=== PATIENT | female | born 1945 | race Caucasian/White ===

== ENCOUNTER 2016-11-07 08:19 | Emergency (ER) | payer MEDICARE ==
[2016-11-07 08:26] VITALS: BP 142/74
--- NOTE | 2016-11-07 10:29 | UC ---
Complaint Female HPI - HPI Summary HPI Summary: URGENCY FREQUENCY AND PAIN WITH URINATION. NO FEVER. NO ABDOMINAL PAIN. NO BACK PAIN. - History Of Current Complaint Chief Complaint: UCGU Stated Complaint: URINARY ISSUE Time Seen by Provider: 11/07/16 08:42 Hx Obtained From: Patient Onset/Duration: Gradual Onset, Lasting Days, Still Present Timing: Lasting Days Severity Initially: Mild Severity Currently: Moderate Pain Intensity: 4 Pain Scale Used: 0-10 Numeric Character: Dull Aggravating Factor(s): Urination Associated Signs And Symptoms: Negative: Fever, Back Pain, Vaginal Discharge, Nausea, Vomiting(# Of Episodes =) - Risk Factors Ectopic Risk Factor: Negative - Allergies/Home Medications Allergies/Adverse Reactions: Allergies Allergy/AdvReac Type Severity Reaction Status Date / Time No Known Allergies Allergy Verified 10/30/13 20:59 PMH/Surg Hx/FS Hx/Imm Hx Previously Healthy: Yes - Surgical History Surgical History: Yes Surgery Procedure, Year, and Place: CHOLECYSTECTOMY,HYSTERECTOMY, BILAT KNEE REPLACEMENT, laminectomy 1984-[employer] - Family History Known Family History: Positive: None, Renal Disease Family History: no cardio vascular issues in family lineage - Social History Occupation: Retired Lives: With Family Alcohol Use: Rare Alcohol Amount: 1-2 glasses of wine per week Substance Use Type: None Substance Use Comment - Amount & Last Used: [place] Smoking Status (MU): Former Smoker Have You Smoked in the Last Year: No When Did the Patient Quit Smoking/Using Tobacco: 1996 Review of Systems Constitutional: Negative Skin: Negative Eyes: Negative ENT: Negative Respiratory: Negative Cardiovascular: Negative Gastrointestinal: Negative Genitourinary: Dysuria, Frequency, Urgency Motor: Negative Neurovascular: Negative Musculoskeletal: Negative Neurological: Negative Psychological: Negative All Other Systems Reviewed And Are Negative: Yes Physical Exam Triage Information Reviewed: Yes Appearance: Well-Appearing, No Pain Distress, Well-Nourished Vital Signs: Initial Vital Signs Temp 98 F 11/07/16 08:22 Pulse 83 11/07/16 08:22 Resp 16 11/07/16 08:22 BP 142/74 11/07/16 08:22 Pulse Ox 98 11/07/16 08:22 Vital Signs Reviewed: Yes Eye Exam: Normal ENT Exam: Normal ENT: Positive: Normal ENT inspection, TMs normal Dental Exam: Normal Neck exam: Normal Neck: Positive: Supple, Nontender, No Lymphadenopathy Respiratory Exam: Normal Respiratory: Positive: Chest non-tender, Lungs clear, Normal breath sounds, No respiratory distress, No accessory muscle use Cardiovascular Exam: Normal Cardiovascular: Positive: RRR, No Murmur, Pulses Normal, Brisk Capillary Refill Abdominal Exam: Normal Abdomen Description: Positive: Nontender, No Organomegaly, Soft. Negative: CVA Tenderness (R), CVA Tenderness (L) Musculoskeletal Exam: Normal Musculoskeletal: Positive: Strength Intact, ROM Intact Neurological Exam: Normal Psychological Exam: Normal Skin Exam: Normal Complaint Female Dx - Differential Dx/Diagnosis Differential Diagnosis/HQI/PQRI: Urinary Tract Infection Provider Diagnoses: URINARY TRACT INFECTION Discharge - Discharge Plan Condition: Stable Disposition: HOME Prescriptions: Phenazopyridine TAB* [Pyridium 100 mg TAB*] 100 mg PO TID #15 tab Sulfamethox/Trimethoprim DS* [Bactrim DS 800/160 TAB*] 1 tab PO BID #10 tab Patient Education Materials: Urinary Tract Infection in Women (ED) Referrals: Lena Ahmadi MD [Primary Care Provider] -
--- NOTE | 2016-11-09 09:16 | ED ---
Course/Dx - Course Course Of Treatment: Urine cx returned showing E.Coli resistant to bactrim. Rx macrobid 100mg po bid x 7 days sent to pharmacy. Nursing to inform patient. - Diagnoses Provider Diagnoses: UTI (urinary tract infection)
== END 2016-11-07 09:20 | disposition home or self-care (01) ==
LOC: UCEAST 08:19
DX: N39.0 Urinary tract infection, site not specified (principal); Z87.891 Personal history of nicotine dependence
CPT/HCPCS: 81003; 87077; 87086; 87186; 99212; G0463

== ENCOUNTER 2019-07-17 10:20 | Day surgery (SDC) | payer MEDICARE ==
[~2019-07-17 10:20] MED LIST: Acetaminophen TAB* 325 MG PO PRN; Buffered Lidocaine 1% SYRIN* 1 ML/SYRINGE INTRADERM ONE; Cyclopentolate 1% OPTH.SOL* 2 ML BTL ONE; Ketorolac 0.5% OPHTH (NF) 0.5 % 5 ML BTL ONE; Lidocaine 1% MPF ** 5 ML VIAL ONE; Neomycin/Polymy/Dex OPHTH.OIN* 3.5 GM ONE; Phenylephrine OPHTH SOL 2.5%* 2 ML ONE; Tetracaine 0.5% OPTH.SOL 4 ML* 1 DROP BTL ONE; Tropicamide 1% OPTH.SOL* BTL ONE
[2019-07-17] MEDS ORDERED: Midazolam* 1 MG/ML 2 ML VIAL (2 MG) ONE (11:23)
[2019-07-17] MEDS ORDERED: fentaNYL* 50 MCG/ML 2 ML VIAL (100 MCG VIAL) ONE (11:23)
[2019-07-17 12:29] VITALS: BP 137/52
--- NOTE | 2019-07-18 00:08 | OP ---
DATE OF OPERATION: 07/17/19 [facility] DATE OF : 41 SURGEON: Dr. Omid Ward. AUTOMOTIVE DIAGNOSTIC TECHNICIAN: None. ANESTHESIA: Topical with intravenous sedation. PRE-OP DIAGNOSIS: Cataract, left eye. POST-OP DIAGNOSIS: Cataract, left eye. OPERATIVE PROCEDURE: Phacoemulsification and cataract extraction with posterior chamber intraocular lens implant, left eye. COMPLICATIONS: None. BLOOD LOSS: None. DESCRIPTION OF PROCEDURE: The patient was brought to the operating room and received a small amount of intravenous sedation. A drop of Tetracaine was placed in her left eye. She was prepped and draped in the usual sterile fashion for ophthalmic surgery and attention was directed to the left eye where a speculum was placed. A paracentesis was created at the 5 o'clock position and 0.1 cc of 1 percent preservative-free Lidocaine was injected into the anterior chamber followed by DisCoVisc. The eye was digitally stabilized while a 2.75 mm keratome was used to create a triplanar clear corneal incision at the 3 o'clock position. A continuous curvilinear capsulorrhexis was created with a cystotome and Utrata forceps. BSS on a cannula was used to hydrodissect the lens from the capsule. Phacoemulsification was performed in a divide-and- conquer technique to create four fragments which were removed. Residual cortical material was removed with irrigation and aspiration. DisCoVisc was used to inflate the capsular bag and an AU00T0 21.5 diopter lens was folded and inserted into the capsular bag. DisCoVisc was removed using irrigation and aspiration. BSS on a cannula was used to hydrate the corneal stroma and seal the wound. At the end of the case the pupil was round and the lens was centered. The eye was of normal pressure and the wound was water tight. The speculum was removed and topical Maxitrol ointment was placed on the surface of the eye. The eye was closed, patched and shielded and the patient was sent to the recovery room in stable condition with post operative instructions and follow-up appointment given. [id number]/[facility] #: [id number] OPAL
== END 2019-07-17 12:45 | disposition home or self-care (01) ==
LOC: OREAST 10:20
PROVIDERS: ATTEND Ophthalmology
DX: H25.12 Age-related nuclear cataract, left eye (principal); R73.03 Prediabetes; M19.90 Unspecified osteoarthritis, unspecified site; Z96.653 Presence of artificial knee joint, bilateral; E78.5 Hyperlipidemia, unspecified
CPT/HCPCS: A9270-GY; J2250; J3010; V2632

== ENCOUNTER 2019-07-24 07:18 | Day surgery (SDC) | payer MEDICARE ==
[~2019-07-24 07:18] MED LIST changes: -Cyclopentolate 1% OPTH.SOL* 2 ML BTL ONE; -Ketorolac 0.5% OPHTH (NF) 0.5 % 5 ML BTL ONE; -Lidocaine 1% MPF ** 5 ML VIAL ONE; -Neomycin/Polymy/Dex OPHTH.OIN* 3.5 GM ONE; -Phenylephrine OPHTH SOL 2.5%* 2 ML ONE; -Tetracaine 0.5% OPTH.SOL 4 ML* 1 DROP BTL ONE; -Tropicamide 1% OPTH.SOL* BTL ONE
[2019-07-24] MEDS ORDERED: fentaNYL* 50 MCG/ML 2 ML VIAL (100 MCG VIAL) ONE (08:42)
[2019-07-24] MEDS ORDERED: Midazolam* 1 MG/ML 5 ML VIAL (5 MG) ONE (08:43)
[2019-07-24 09:31] VITALS: BP 147/62
[2019-07-24] MEDS ORDERED: Phenylephrine OPHTH SOL 2.5%* 2 ML ONE (11:25)
[2019-07-24] MEDS ORDERED: Ketorolac 0.5% OPHTH (NF) 0.5 % 5 ML BTL ONE (11:25)
[2019-07-24] MEDS ORDERED: Tropicamide 1% OPTH.SOL* BTL ONE (11:25)
[2019-07-24] MEDS ORDERED: Tetracaine 0.5% OPTH.SOL 4 ML* 1 DROP BTL ONE (11:25)
[2019-07-24] MEDS ORDERED: Neomycin/Polymy/Dex OPHTH.OIN* 3.5 GM ONE (11:25)
[2019-07-24] MEDS ORDERED: Cyclopentolate 1% OPTH.SOL* 2 ML BTL ONE (11:25)
[2019-07-24] MEDS ORDERED: Lidocaine 1% MPF ** 5 ML VIAL ONE (11:25)
[2019-07-24] MEDS ORDERED: Phenylephr/Ketorolac 1%/0.3% OPH DROP BTL ONE (11:30)
--- NOTE | 2019-07-24 15:21 | OP ---
DATE OF OPERATION: 07/24/2019 [facility] DATE OF : 1945. SURGEON: Dr. Omid Ward. NETEZZA ARCHITECT: None. ANESTHESIA: Topical with intravenous sedation. PRE-OP DIAGNOSIS: Cataract, right eye. POST-OP DIAGNOSIS: Cataract, right eye. OPERATIVE PROCEDURE: Phacoemulsification and cataract extraction with posterior chamber intraocular lens implant, right eye. COMPLICATIONS: None. BLOOD LOSS: None. DESCRIPTION OF PROCEDURE: The patient was brought to the operating room and received a small amount of intravenous sedation. A drop of Tetracaine was placed in her right eye. She was prepped and draped in the usual sterile fashion for ophthalmic surgery and attention was directed to the right eye where a speculum was placed. A paracentesis was created at the 11 o'clock position and 0.1 cc of 1 percent preservative-free Lidocaine was injected into the anterior chamber followed by DisCoVisc. The eye was digitally stabilized while a 2.75 mm keratome was used to create a triplanar clear corneal incision at the 9 o'clock position. A continuous curvilinear capsulorrhexis was created with a cystotome and Utrata forceps. BSS on a cannula was used to hydrodissect the lens from the capsule. Phacoemulsification was performed in a divide-and- conquer technique to create four fragments which were removed. Residual cortical material was removed with irrigation and aspiration. DisCoVisc was used to inflate the capsular bag and an AUOOTO 21.5 diopter lens was folded and inserted into the capsular bag. DisCoVisc was removed using irrigation and aspiration. BSS on a cannula was used to hydrate the corneal stroma and seal the wound. At the end of the case the pupil was round and the lens was centered. The eye was of normal pressure and the wound was water tight. The speculum was removed and topical Maxitrol ointment was placed on the surface of the eye. The eye was closed, patched and shielded and the patient was sent to the recovery room in stable condition with post operative instructions and follow-up appointment given. [id number]/[facility] #: [id number] OPAL
== END 2019-07-24 09:45 | disposition home or self-care (01) ==
LOC: OREAST 07:18
PROVIDERS: ATTEND Ophthalmology
DX: H25.11 Age-related nuclear cataract, right eye (principal); E11.9 Type 2 diabetes mellitus without complications; Z79.84 Long term (current) use of oral hypoglycemic drugs; M19.90 Unspecified osteoarthritis, unspecified site; Z96.653 Presence of artificial knee joint, bilateral
CPT/HCPCS: A9270-GY; J1097; J2250; J3010; V2632

== ENCOUNTER 2021-08-24 06:08 | Inpatient (IN) ==
[~2021-08-24 06:08] MED LIST changes: -Acetaminophen TAB* 325 MG PO PRN; +Buffered Lidocaine 1% SYRIN 1 ml INTRADERM ONE; -Buffered Lidocaine 1% SYRIN* 1 ML/SYRINGE INTRADERM ONE; +Lactated Ringers 1000 ml BAG 1,000 ML IV SCH
[2021-08-24] MEDS ORDERED: ceFAZolin 2 GM PREMIX 0 GM/0 ML BAG ONE (06:15)
[2021-08-24] MEDS ORDERED: ceFAZolin 2 GM in NS PREMIX 2 GM/100 ML BAG IVPB ONE (06:15)
[2021-08-24] MEDS ORDERED: Dexamethasone IV 4 MG/ML VIAL 1 ml VIAL ONE (07:00)
[2021-08-24] MEDS ORDERED: Propofol 10 MG/ML 20 ML BTL ONE (07:00)
[2021-08-24] MEDS ORDERED: Lidocaine 2% PF 5 ML VIAL ONE (07:00)
[2021-08-24] MEDS ORDERED: Ondansetron 4 mg VIAL 2 MG/ML 2 ml VIAL ONE (07:00)
[2021-08-24] MEDS ORDERED: Rocuronium 50 mg VIAL 10 mg/ml 5 ml VIAL (50 mg) ONE ×2 (07:00→09:19)
[2021-08-24] MEDS ORDERED: fentaNYL 100 mcg/2 ml 50 MCG/ML VIAL ONE (07:00)
[2021-08-24] MEDS ORDERED: Vancomycin 1,000 MG VIAL ONE (07:06)
[2021-08-24] MEDS ORDERED: Midazolam 2 mg/2 ml VIAL 1 mg/ml 2 ml VIAL (2 mg) ONE (07:10)
[2021-08-24] MEDS ORDERED: ROPIVACAINE 5 MG/ML 30 ML BTL (0.5%) ONE (07:12)
[2021-08-24] MEDS ORDERED: Lidocaine 1% MPF 5 ML VIAL ONE (07:12)
[2021-08-24] MEDS ORDERED: EPHEDrine (Pressors) 50 MG/ML VIAL ONE (08:16)
[2021-08-24] MEDS ORDERED: fentaNYL 100 mcg/2 ml 50 MCG/ML VIAL IV PRN (08:32)
[2021-08-24] MEDS ORDERED: DiMENhydriNATE IV 50 mg/ml 1 ml VIAL IV PUSH PRN (08:32)
[2021-08-24] MEDS ORDERED: Ondansetron 4 mg VIAL 2 MG/ML 2 ml VIAL IV PRN ×2 (08:32→11:33)
[2021-08-24] MEDS ORDERED: Acetaminophen IV 1 GM/100ML 100 ML IV PRN (08:32)
[2021-08-24] MEDS ORDERED: HYDROmorphone 1 MG/1 ML SYRINGE IV PRN (08:32)
[2021-08-24] MEDS ORDERED: Naloxone 0.4 mg VIAL 0.4 mg/ml 1 ml VIAL IV PRN (08:32)
[2021-08-24] MEDS ORDERED: Phenylephrine IV 10 MG/ML 1 ml VIAL ONE (08:37)
[2021-08-24] MEDS ORDERED: diPHENhydraMINE IV 50 MG/ML 1 ml VIAL (BENADRYL) IV PRN (11:33)
[2021-08-24] MEDS ORDERED: Lactulose 30 ml UDC PO PRN (11:33)
[2021-08-24] MEDS ORDERED: diPHENhydraMINE 25 mg TAB PO PRN (11:33)
[2021-08-24] MEDS ORDERED: Ondansetron ODT 4 mg TAB 4 MG TAB PO PRN (11:33)
[2021-08-24] MEDS ORDERED: Morphine 2 MG/ML SYRINGE IV PRN (11:33)
[2021-08-24] MEDS ORDERED: Magnesium Hydroxide LIQ 30 ML UDC PO PRN (11:33)
[2021-08-24] MEDS ORDERED: ceFAZolin 1 GM ADVAN 1 GM in NS 0.9% 50 ML 50 ML IVPB SCH (12:00)
[2021-08-24] MEDS: Lactated Ringers 1000 ml BAG 1,000 ML IV SCH (13:24)
[2021-08-24] MEDS ORDERED: Omeprazole 20 mg CAP (NF) PO SCH (17:00)
[2021-08-24] MEDS: ceFAZolin VIAL 1 GM in NS 0.9% 50 ML 50 ML IVPB SCH (17:20)
[2021-08-24] MEDS: Magnesium Hydroxide LIQ 30 ML UDC PO SCH (21:38)
[2021-08-25] MEDS: ceFAZolin VIAL 1 GM in NS 0.9% 50 ML 50 ML IVPB SCH ×2 (01:39→09:59)
[2021-08-25 06:23] LABS: Hematocrit 34 % (35-47); Hemoglobin 11.8 g/dL (12.0-16.0); Mean Platelet Volume 8.2 fL (7.4-10.4); Platelet Count 212 10^3/uL (150-450)
[2021-08-25] MEDS: Lactated Ringers 1000 ml BAG 1,000 ML IV SCH (06:39)
[2021-08-25 07:00] LABS: Calcium 8.3 mg/dL (8.6-10.3); Potassium 3.3 mmol/L (3.5-5.0); eGFR CKD-EPI 45.3 (>60)
[2021-08-25] MEDS ORDERED: Enoxaparin 40 MG/0.4 ML SYR SUBCUT SCH (08:00)
[2021-08-25] MEDS ORDERED: Potassium Chlor 20 meq TAB.ER PO SCH (09:00)
[2021-08-25] MEDS ORDERED: DULoxetine DR 20 mg CAP PO SCH (09:00)
[2021-08-25] MEDS ORDERED: Vitamin THERAPEUTIC TAB PO SCH (09:00)
[2021-08-25] MEDS ORDERED: Losartan/HCTZ 100/25 TAB (NF) PO SCH (09:00)
[2021-08-25] MEDS ORDERED: Potassium Chlor 20 meq TAB.ER PO ONE ×2 (09:30→12:00)
[2021-08-25] MEDS: Magnesium Hydroxide LIQ 30 ML UDC PO SCH (10:04)
[2021-08-25 11:09] VITALS: BP 111/67
== END 2021-08-25 14:45 | disposition home or self-care (01) | DRG 483 ==
LOC: SSU 06:08 → OR 06:08
PROVIDERS: ADMIT Orthopaedic Surgery; ATTEND Orthopaedic Surgery